=== PATIENT | female | born 1965 ===

== ENCOUNTER → 2017-06-15 | Outpatient (CLI) | payer OTHER ==
[2017-06-15 13:56] LABS: BLOOD UREA NITROGEN 17 mg/dl (7-18); BUN/CREATININE RATIO 20.1 (10-20); CARBON DIOXIDE 27 mmol/L (21-32); CHLORIDE 108 mmol/L (98-107); CREATININE 0.83 mg/dl (0.60-1.20); GLUCOSE 96 mg/dl (70-99); POTASSIUM 4.1 mmol/L (3.5-5.1); SODIUM 141 mmol/L (136-145)
[2017-06-15 13:57] LABS: ESTIMATED AVERAGE GLUCOSE 108 mg/dl; HA1C FLAG Normal (Normal)
== END | disposition home or self-care (01) ==
LOC: C.LABMFLN 11:24
PROVIDERS: ATTEND Family Medicine
DX: R73.01 Impaired fasting glucose (principal)

== ENCOUNTER → 2017-09-13 | Outpatient (CLI) | payer OTHER ==
[2017-09-13 18:08] LABS: BASO % 0.3 %; BASO ABS # 0.02 K/uL (0-0.2); COMPLETE YES; EOS % 0.5 %; HEMATOCRIT 39.3 % (37-47); IG% 0.3 %; LYMPH % 23.1 %; LYMPH ABS # 1.76 K/uL (1.2-3.4); MEAN CELL VOLUME 91.4 fL (80-100); MEAN CORPUSCULAR HEMOGLOBIN 30.9 pg (25-34); MEAN CORPUSCULAR HGB CONC 33.8 g/dl (32-36); MEAN PLATELET VOLUME 11.5 fL (7.4-10.4); NEUT % 70.8 %; PLATELET COUNT 173 K/uL (130-400); WHITE BLOOD COUNT 7.63 K/uL (4.8-10.8)
[2017-09-13 18:24] LABS: C-REACTIVE PROTEIN < 0.29 mg/dl (0-0.29); RHEUMATOID FACTOR < 10.0 U/mL (0-15)
== END | disposition home or self-care (01) ==
LOC: C.LABMFLN 10:50
PROVIDERS: ATTEND Family Medicine
DX: M77.50 Other enthesopathy of unspecified foot and ankle (principal)

== ENCOUNTER → 2017-11-11 | Outpatient (CLI) | payer OTHER ==
[~2017-11-11] MED LIST: GADAVIST IV PRN
--- NOTE | 2017-11-11 15:31 | DIAGNOSTIC IMAGING REPORT ---
LEFT FOREFOOT MRI HISTORY: Left foot pain. TECHNIQUE: Multiplanar multisequence MRI of the left forefoot was performed both before and after the intravenous administration of contrast. COMPARISON STUDY: None. FINDINGS: No fracture or dislocation within the left forefoot. Best seen on axial images 13 and 14 there is a focal area of signal abnormality within the soft tissues between the heads of the third and fourth metatarsals. This demonstrates T2 hyperintense and T1 hypointense signal. This measures approximately 10 x 4 mm. This does not demonstrate significant enhancement. Trace amount of fluid adjacent to this location. No additional soft tissue abnormalities identified within the forefoot. Cartilage spaces are maintained. IMPRESSION: A 10 x 4 mm focal area of signal abnormality within the left forefoot between the third and fourth metatarsal heads. This does not demonstrate significant enhancement. However, the location is suspicious for a Mireles's neuroma. Electronically signed by: Abel Vasques M.D. 11/12/2017 2:14 PM Dictated Date/Time: 11/11/2017 3:24 PM
== END | disposition home or self-care (01) ==
PROVIDERS: ATTEND Podiatrist Foot & Ankle Surgery
DX: G57.82 Other specified mononeuropathies of left lower limb (principal); G57.62 Lesion of plantar nerve, left lower limb; D36.13 Benign neoplasm of peripheral nerves and autonomic nervous system of lower limb, including hip

== ENCOUNTER → 2018-01-10 | Outpatient (CLI) | payer OTHER ==
[2018-01-10 17:58] LABS: HEMATOCRIT 42.7 % (37-47); HEMOGLOBIN 14.6 g/dL (12.0-16.0); MEAN CELL VOLUME 91.8 fL (80-100); MEAN CORPUSCULAR HEMOGLOBIN 31.4 pg (25-34); MEAN CORPUSCULAR HGB CONC 34.2 g/dl (32-36); MEAN PLATELET VOLUME 11.2 fL (7.4-10.4); PLATELET COUNT 204 K/uL (130-400); RED CELL DISTRIBUTION WIDTH CV 13.6 % (11.5-14.5); RED CELL DISTRIBUTION WIDTH SD 45.3 fL (36.4-46.3); WHITE BLOOD COUNT 9.76 K/uL (4.8-10.8)
[2018-01-10 18:10] LABS: INR 0.9 (0.9-1.1); PTT PATIENT 26.2 SECONDS (21.0-31.0)
[2018-01-10 18:11] LABS: BLOOD UREA NITROGEN 17 mg/dl (7-18); CALCIUM 8.9 mg/dl (8.5-10.1); CARBON DIOXIDE 28 mmol/L (21-32); CREATININE 0.87 mg/dl (0.60-1.20); GLUCOSE 89 mg/dl (70-99); POTASSIUM 3.7 mmol/L (3.5-5.1); SODIUM 139 mmol/L (136-145)
== END | disposition home or self-care (01) ==
LOC: C.LABMFLN 14:45
PROVIDERS: ATTEND Family Medicine
DX: Z01.810 Encounter for preprocedural cardiovascular examination (principal)